=== PATIENT | female | born 1935 | race Caucasian/White ===

== ENCOUNTER 2024-01-27 15:20 | Emergency (ER) | payer MEDICARE ==
[~2024-01-27] VITALS: Ht 157.5 cm; Wt 166.0 kg
[2024-01-27 17:17] LABS: BASO % 0.6 % (0.0-1.0); EOS # 0.1 10^3/uL (0.0-0.5); EOS % 2.4 % (0.0-3.0); HEMATOCRIT 35.9 % (36.0-47.0); HEMOGLOBIN 12.3 g/dl (12.0-15.5); LYMPH # 1.9 10^3/uL (1.5-5.0); LYMPH % 39.9 % (24.0-44.0); MEAN CORPUSCULAR HEMOGLOBIN 31.8 pg (27.0-33.0); MEAN CORPUSCULAR HGB CONC 34.3 g/dl (32.0-36.5); MEAN CORPUSCULAR VOLUME 92.8 fl (80.0-96.0); MONO # 0.4 10^3/uL (0.0-0.8); MONO % 7.5 % (2.0-8.0); NEUTROPHILS # 2.3 10^3/uL (1.5-8.5); NEUTROPHILS % 49.6 % (36.0-66.0); PLATELET COUNT, AUTOMATED 247 10^3/uL (150-450); RED BLOOD COUNT 3.87 10^6/uL (4.00-5.40); WHITE BLOOD COUNT 4.6 10^3/uL (4.0-10.0)
[2024-01-27 17:31] LABS: INR 1.13; PROTHROMBIN TIME 14.1 SECONDS (12.5-14.5)
[2024-01-27 17:46] LABS: CK-MB VALUE MASS < 1.0 NG/ML (<3.6); LIPASE 29 U/L (12-53)
[2024-01-27 17:48] LABS: ALBUMIN 3.3 G/DL (3.2-5.2); ALKALINE PHOSPHATASE 93 U/L (46-116); ALT/SGPT 15 U/L (7.0-40); AST/SGOT 16 U/L (<34); BILIRUBIN,DIRECT 0.2 MG/DL (<0.4); BILIRUBIN,TOTAL 0.5 MG/DL (0.3-1.2); BLOOD UREA NITROGEN 22 MG/DL (9-23); CALCIUM LEVEL 9.7 MG/DL (8.3-10.6); CARBON DIOXIDE LEVEL 28 MMOL/L (20-31); CHLORIDE LEVEL 108 MMOL/L (98-107); CREATININE FOR GFR 1.14 MG/DL (0.55-1.30); GLUCOSE, FASTING 91 MG/DL (74-106); SODIUM LEVEL 142 MMOL/L (136-145); TOTAL PROTEIN 6.8 G/DL (5.7-8.2)
[2024-01-27 17:56] LABS: CPK CREATINE PHOSPHOKINASE 49 U/L (34-145); MB/CK RELATIVE INDEX 2.04 (< OR =4)
[2024-01-27 18:44] VITALS: BP 226/100
[2024-01-27] MEDS: hydrALAZINE 20MG/ML 1ML VIAL IV STA (18:44)
[2024-01-27] MEDS ORDERED: LOSA100T46 PO (20:22)
[2024-01-27] MEDS ORDERED: HYDR-3490 PO (20:22)
[2024-01-27] MEDS ORDERED: AMLO1TAB24 PO (20:22)
[2024-01-27] MEDS: amLODIPine 5 MG TAB PO ONE (20:31)
[2024-01-27 20:33] VITALS: BP 187/79; TEMP 97.3; O2SAT 98
== END 2024-01-27 20:40 | disposition home or self-care (01) ==
LOC: M ED 15:20
DX: I10 Essential (primary) hypertension (principal); R94.31 Abnormal electrocardiogram [ECG] [EKG]; Z79.899 Other long term (current) drug therapy
CPT/HCPCS: 36415; 70450; 70486; 71045; 80048; 80076; 82550; 82553; 83690; 84484; 85025; 85610; 93005; 93041; 94760; 96374; 99285; J0360

== ENCOUNTER 2024-02-03 12:37 | Inpatient (IN) | payer MEDICARE ==
[~2024-02-03] VITALS: Ht 157.5 cm; Wt 75.5 kg
[~2024-02-03 12:37] MED LIST: AMLO1TAB24 PO; HYDR-3490 PO; LOSA100T46 PO
[2024-02-03] MEDS ORDERED: IBUP-1022 PO (12:54)
[2024-02-03] MEDS: ACETAMINOPHEN TAB 650MG DOSE (2X325MG) PO ONE (14:21)
[2024-02-03 16:30] LABS: BASO % 0.5 % (0.0-1.0); EOS # 0.2 10^3/uL (0.0-0.5); EOS % 2.7 % (0.0-3.0); HEMOGLOBIN 12.8 g/dl (12.0-15.5); LYMPH # 2.2 10^3/uL (1.5-5.0); LYMPH % 37.4 % (24.0-44.0); MEAN CORPUSCULAR HGB CONC 34.6 g/dl (32.0-36.5); MEAN CORPUSCULAR VOLUME 92.5 fl (80.0-96.0); MONO # 0.4 10^3/uL (0.0-0.8); MONO % 6.1 % (2.0-8.0); NEUTROPHILS # 3.1 10^3/uL (1.5-8.5); NEUTROPHILS % 53.1 % (36.0-66.0); PLATELET COUNT, AUTOMATED 255 10^3/uL (150-450); WHITE BLOOD COUNT 5.9 10^3/uL (4.0-10.0)
[2024-02-03 16:42] LABS: INR 1.1; PROTHROMBIN TIME 13.9 SECONDS (12.5-14.5)
[2024-02-03 16:52] LABS: CALCIUM LEVEL 9.4 MG/DL (8.3-10.6); CREATININE FOR GFR 1.5 MG/DL (0.55-1.30); POTASSIUM SERUM 4.5 MMOL/L (3.5-5.1)
[2024-02-03] MEDS ORDERED: fentaNYL 100 MCG/2 ML INJECTION As Ordered ONE (17:25)
[2024-02-03] MEDS ORDERED: ONDANSETRON 4MG 2ML VIAL As Ordered ONE (17:25)
[2024-02-03] MEDS ORDERED: LIDOCAINE 2% 100MG/5ML SDV (FOR ANES.) As Ordered ONE (17:25)
[2024-02-03] MEDS ORDERED: ROCURONIUM BROMIDE 50MG/5ML VIAL As Ordered ONE (17:25)
[2024-02-03] MEDS ORDERED: propofoL 200 MG/20 ML VIAL As Ordered ONE (17:25)
[2024-02-03] MEDS ORDERED: SUGAMMADEX SODIUM 500 MG/5 ML VIAL (BRIDION) As Ordered ONE (17:25)
[2024-02-03] MEDS ORDERED: ceFAZolin 1GM VIAL As Ordered ONE (17:57)
[2024-02-03] MEDS ORDERED: GLUCAGON INJ 1MG VIAL SC PRN (18:20)
[2024-02-03] MEDS ORDERED: DEXTROSE 50% 50ML SYRINGE IV PRN (18:20)
[2024-02-03] MEDS ORDERED: GLUCOSE 4 GM CHEW PO PRN (18:20)
[2024-02-03] MEDS ORDERED: oxyCODONE 5MG TAB PO PRN (19:30)
[2024-02-03] MEDS ORDERED: HYDROMORPHONE HCL 0.5 MG/ 0.5 ML SYRINGE IV PRN (19:30)
[2024-02-03] MEDS ORDERED: fentaNYL 100 MCG/2 ML INJECTION IV PRN (19:30)
[2024-02-03] MEDS ORDERED: ONDANSETRON 4MG 2ML VIAL IV PRN (19:30)
[2024-02-03] MEDS ORDERED: ceFAZolin 2 GM/D5W 50 ML IV BAG As Ordered ONE (19:41)
[2024-02-03] MEDS: ceFAZolin SOD 2 GM in IV 1 EA IV SCH (20:00)
[2024-02-03 20:21] VITALS: BP 135/75; TEMP 96.6; O2SAT 95
[2024-02-03] MEDS: INSULIN LISPRO (NovoLOG) PER UNIT SC SCH (21:00)
[2024-02-03] MEDS ORDERED: BASA100I SC (21:09)
[2024-02-03] MEDS ORDERED: AMLO1TAB24 PO (21:09)
[2024-02-03] MEDS ORDERED: LOSA100T46 PO (21:09)
[2024-02-03] MEDS ORDERED: HYDR-3490 PO (21:09)
[2024-02-03] MEDS ORDERED: HOME MED LIST COMPLETE! XX SCH (21:10)
[2024-02-03] MEDS: LR 1,000 ML IV SCH (21:16)
[2024-02-03 21:30] VITALS: BP 134/73; TEMP 93.6; O2SAT 98
[2024-02-03] MEDS: SENNA 8.6 MG TAB (SENOKOT) PO SCH (21:33)
[2024-02-03] MEDS: DOCUSATE SODIUM 100MG CAPSULE PO SCH (21:33)
[2024-02-03] MEDS: oxyCODONE 5MG TAB PO PRN (21:34)
[2024-02-03 21:45] VITALS: TEMP 94.4; O2SAT 94
[2024-02-03 22:20] VITALS: BP 136/72; TEMP 94.7; O2SAT 95
[2024-02-03 23:41] VITALS: BP 140/67; TEMP 95.7; O2SAT 94
[2024-02-04] VITALS (14 sets, daily range): BP systolic 129–146; BP diastolic 57–71; TEMP 96.7–98.7; O2SAT 91–97
[2024-02-04] MEDS: NS 1,000 ML IV SCH (01:23)
[2024-02-04] MEDS: INSULIN LISPRO (NovoLOG) PER UNIT SC SCH (07:30)
[2024-02-04] MEDS: LEVEMIR (INSULIN DETEMIR) 1 UNITS/0.01ML SC SCH (07:51)
[2024-02-04 09:43] LABS: CALCIUM LEVEL 8.4 MG/DL (8.3-10.6); CREATININE FOR GFR 1.37 MG/DL (0.55-1.30); GLOMERULAR FILTRATION RATE 38.8 (>32); POTASSIUM SERUM 4.6 MMOL/L (3.5-5.1)
[2024-02-04 09:50] LABS: HEMOGLOBIN 10.9 g/dl (12.0-15.5); MEAN CORPUSCULAR HEMOGLOBIN 32.2 pg (27.0-33.0); MEAN CORPUSCULAR HGB CONC 34.1 g/dl (32.0-36.5); MEAN CORPUSCULAR VOLUME 94.7 fl (80.0-96.0); PLATELET COUNT, AUTOMATED 213 10^3/uL (150-450); RED BLOOD COUNT 3.38 10^6/uL (4.00-5.40); WHITE BLOOD COUNT 5.5 10^3/uL (4.0-10.0)
[2024-02-04] MEDS: amLODIPine 5 MG TAB PO SCH (09:55)
[2024-02-04] MEDS: ACETAMINOPHEN TAB 650MG DOSE (2X325MG) PO PRN (20:31)
[2024-02-05 05:58] VITALS: BP 138/62; TEMP 98.1; O2SAT 93
[2024-02-05 09:18] LABS: HEMOGLOBIN 10.5 g/dl (12.0-15.5); MEAN CORPUSCULAR HEMOGLOBIN 31.7 pg (27.0-33.0); MEAN CORPUSCULAR HGB CONC 33.9 g/dl (32.0-36.5); MEAN CORPUSCULAR VOLUME 93.7 fl (80.0-96.0); PLATELET COUNT, AUTOMATED 209 10^3/uL (150-450); RED BLOOD COUNT 3.31 10^6/uL (4.00-5.40)
[2024-02-05] MEDS: ENOXAPARIN 30MG/0.3ML SYRINGE (J1650 PER 10MG) SC SCH (09:39)
[2024-02-05 09:40] VITALS: BP 138/62
[2024-02-05 09:41] LABS: CALCIUM LEVEL 8.9 MG/DL (8.3-10.6); CREATININE FOR GFR 1.29 MG/DL (0.55-1.30); GLOMERULAR FILTRATION RATE 41.6 (>32); POTASSIUM SERUM 3.9 MMOL/L (3.5-5.1)
[2024-02-05] MEDS ORDERED: SENN1TAB85 PO (12:35)
[2024-02-05] MEDS ORDERED: ACET-897 PO (12:39)
[2024-02-05] MEDS ORDERED: OXYC-517 PO (12:39)
== END 2024-02-05 14:33 | disposition home health service (06) | DRG 481 ==
LOC: M ED 12:37 → M ED INP 17:59 → M MSPAV 20:22
PROVIDERS: ADMIT Internal Medicine Nephrology; ATTEND Internal Medicine Nephrology
PROC: 0QS734Z Reposition Left Upper Femur with Internal Fixation Device, Percutaneous Approach (ICD-10-PCS; principal; 2024-02-03 17:30)
DX: S72.092A Other fracture of head and neck of left femur, initial encounter for closed fracture (principal); M48.56XA Collapsed vertebra, not elsewhere classified, lumbar region, initial encounter for fracture; E11.9 Type 2 diabetes mellitus without complications; I44.0 Atrioventricular block, first degree; W18.30XA Fall on same level, unspecified, initial encounter; Y92.9 Unspecified place or not applicable; Y93.9 Activity, unspecified; Y99.8 Other external cause status; M81.0 Age-related osteoporosis without current pathological fracture; I10 Essential (primary) hypertension; Z85.3 Personal history of malignant neoplasm of breast; Z90.12 Acquired absence of left breast and nipple; Z96.653 Presence of artificial knee joint, bilateral; Z98.41 Cataract extraction status, right eye; Z79.899 Other long term (current) drug therapy; Z98.42 Cataract extraction status, left eye

== ENCOUNTER → 2024-03-02 | Outpatient (CLI) | payer MEDICARE ==
[~2024-03-02] MED LIST changes: +ACET-897 PO; +BASA100I SC; +IBUP-1022 PO; +OXYC-517 PO; +SENN1TAB85 PO
== END ==
LOC: M SOG 08:18
PROVIDERS: ATTEND Physician Assistant
DX: S72.002A Fracture of unspecified part of neck of left femur, initial encounter for closed fracture (principal); W18.30XA Fall on same level, unspecified, initial encounter; Y92.009 Unspecified place in unspecified non-institutional (private) residence as the place of occurrence of the external cause

== ENCOUNTER → 2024-05-18 | Outpatient (CLI) | payer MEDICARE | LOC: M SOG 07:59 | PROVIDERS: ATTEND Orthopaedic Surgery | DX: S72.002A Fracture of unspecified part of neck of left femur, initial encounter for closed fracture (principal); X58.XXXA Exposure to other specified factors, initial encounter; Y92.9 Unspecified place or not applicable; Y93.9 Activity, unspecified; Y99.8 Other external cause status ==

== ENCOUNTER 2025-06-25 09:10 | Emergency (ER) | payer MEDICARE ==
[~2025-06-25] VITALS: Ht 160 cm; Wt 68.2 kg
[~2025-06-25 09:10] MED LIST changes: -IBUP-1022 PO; +IBUP600T42 PO
[2025-06-25 09:47] LABS: BASO # 0.0 10^3/uL (0.0-0.2); BASO % 0.2 % (0.0-1.0); EOS # 0.0 10^3/uL (0.0-0.5); EOS % 0.1 % (0.0-3.0); LYMPH # 0.9 10^3/uL (1.5-5.0); LYMPH % 10.0 % (24.0-44.0); MONO # 0.6 10^3/uL (0.0-0.8); MONO % 6.0 % (2.0-8.0); NEUTROPHILS # 7.7 10^3/uL (1.5-8.5); NEUTROPHILS % 83.5 % (36.0-66.0); PLATELET COUNT, AUTOMATED 166 10^3/uL (150-450)
[2025-06-25 10:05] LABS: INR 1.12
[2025-06-25 10:19] LABS: CPK CREATINE PHOSPHOKINASE 53.0 U/L (34-145)
[2025-06-25 10:20] LABS: ALT/SGPT 253.0 U/L (7.0-40); AST/SGOT 95.0 U/L (<34); CALCIUM LEVEL 8.0 MG/DL (8.3-10.6); CARBON DIOXIDE LEVEL 22.0 MMOL/L (20-31); CHLORIDE LEVEL 106.0 MMOL/L (98-107); CK-MB VALUE MASS 2.2 NG/ML (<3.6); CREATININE FOR GFR 1.5 MG/DL (0.55-1.30); GLOMERULAR FILTRATION RATE 33.1 (>32); MB/CK RELATIVE INDEX 4.15 (< OR =4); POTASSIUM SERUM 3.3 MMOL/L (3.5-5.1); SODIUM LEVEL 139.0 MMOL/L (136-145)
[2025-06-25] MEDS ORDERED: ISOVUE-370 76% 100 ML VIAL As Ordered ONE (10:21)
[2025-06-25 10:25] LABS: FREE T4 1.18 NG/DL (0.89-1.76)
[2025-06-25 11:21] LABS: CK-MB VALUE MASS 2.0 NG/ML (<3.6)
[2025-06-25] MEDS ORDERED: NOVO1INJ18 SC (11:28)
[2025-06-25] MEDS ORDERED: VALS1TAB66 PO (11:28)
[2025-06-25] MEDS ORDERED: TORS20TA2 PO (11:28)
[2025-06-25] MEDS ORDERED: ACET-683 PO (11:28)
[2025-06-25 11:30] LABS: CPK CREATINE PHOSPHOKINASE 49.0 U/L (34-145); MB/CK RELATIVE INDEX 4.08 (< OR =4)
[2025-06-25] MEDS ORDERED: HOME MED LIST COMPLETE! XX SCH (11:30)
[2025-06-25] MEDS: HEPARIN SOD 5000 UNITS/ML 1 ML VIAL/SYRINGE IV ONE (13:43)
[2025-06-25] MEDS: ASPIRIN 81 MG CHEWABLE TABLET PO ONE (13:45)
[2025-06-25] MEDS: HEPARIN DRIP 25,000 UNITS in IV 1 EA IV SCH (13:45)
[2025-06-25 14:46] VITALS: BP 139/82; TEMP 97.9; O2SAT 96
== END 2025-06-25 15:06 | disposition short-term general hospital (02) ==
LOC: M ED 09:10
DX: I21.4 Non-ST elevation (NSTEMI) myocardial infarction (principal); I45.81 Long QT syndrome; J91.8 Pleural effusion in other conditions classified elsewhere; J98.11 Atelectasis; K44.9 Diaphragmatic hernia without obstruction or gangrene; E11.9 Type 2 diabetes mellitus without complications; I10 Essential (primary) hypertension; Z85.3 Personal history of malignant neoplasm of breast; Z79.1 Long term (current) use of non-steroidal anti-inflammatories (NSAID); Z79.4 Long term (current) use of insulin; Z79.899 Other long term (current) drug therapy
CPT/HCPCS: 71045; 71275; 74174; 80047; 80048; 80076; 82550; 82553; 83690; 83880; 84439; 84443; 84484; 85025; 85610; 85730; 93005; 93041; 94760; 96374; 96375; 99291; J2765; Q9967

== ENCOUNTER → 2025-09-01 | Outpatient (REF) | payer MEDICARE ==
[~2025-09-01] MED LIST changes: +ACET-683 PO; +NOVO1INJ18 SC; +TORS20TA2 PO; +VALS1TAB66 PO
== END ==
LOC: M LAB REF 10:48
PROVIDERS: ATTEND Student in an Organized Health Care Education/Training Program
DX: N18.4 Chronic kidney disease, stage 4 (severe) (principal); Z53.9 Procedure and treatment not carried out, unspecified reason